=== PATIENT | male | born 1955 | race Caucasian/White ===

== ENCOUNTER 2022-09-10 14:46 | Outpatient (REF) | payer MEDICARE, MEDICAID, SELFPAY ==
--- NOTE | ~2022-09-10 | XR_ITS ---
EXAMINATION: XR THORACIC SPINE CLINICAL INFORMATION: Thoracic spine pain. COMPARISON: None TECHNIQUE: Frontal, lateral and swimmer's views of the thoracic spine were obtained. FINDINGS: There is bony demineralization. Vertebral body heights and alignment are normal. There is disc space narrowing at C3-C4, C4-C5, C6-C7 and T5-T6. The remaining disc spaces are relatively well-maintained. No acute fracture or spondylolisthesis is seen. There is multi-level mild cervicothoracic spondylosis. The posterior elements are intact. The paravertebral soft tissues are unremarkable. Median sternotomy wires and a cardiac valvuloplasty are noted. There is orthopedic hardware applied to numerous ribs. XR/XR lumbar spine 2-3V IMPRESSION: There is multi-level cervical thoracic degenerative disc disease and spondylosis, as detailed above. No acute fracture or spondylolisthesis is seen. EXAMINATION: XR LUMBOSACRAL SPINE CLINICAL INFORMATION: Degenerative disc disease. COMPARISON: None TECHNIQUE: AP and lateral views of the lumbar spine and lateral view of the lumbosacral junction. FINDINGS: There is bony demineralization. There is a moderate thoracolumbar dextroscoliosis. There is a moderate L5 upper endplate compression fracture. There is rightward disc space narrowing at L4-L5. The remaining lumbar disc spaces are well-maintained. The posterior elements are intact. This multi-level lumbar spondylosis and facet arthropathy. The paravertebral soft tissues are unremarkable. Orthopedic hardware seen applied to the pelvis. IMPRESSION: 1. There is a moderate thoracolumbar dextroscoliosis. 2. There is a moderate L5 compression fracture. 3. There is multi-level lumbar spondylosis and facet arthropathy. 4. There is degenerative disc disease at L4-L5.
--- NOTE | ~2022-09-10 | XR_ITS ---
EXAMINATION: XR THORACIC SPINE CLINICAL INFORMATION: Thoracic spine pain. COMPARISON: None TECHNIQUE: Frontal, lateral and swimmer's views of the thoracic spine were obtained. FINDINGS: There is bony demineralization. Vertebral body heights and alignment are normal. There is disc space narrowing at C3-C4, C4-C5, C6-C7 and T5-T6. The remaining disc spaces are relatively well-maintained. No acute fracture or spondylolisthesis is seen. There is multi-level mild cervicothoracic spondylosis. The posterior elements are intact. The paravertebral soft tissues are unremarkable. Median sternotomy wires and a cardiac valvuloplasty are noted. There is orthopedic hardware applied to numerous ribs. XR/XR thoracic spine 3V IMPRESSION: There is multi-level cervical thoracic degenerative disc disease and spondylosis, as detailed above. No acute fracture or spondylolisthesis is seen. EXAMINATION: XR LUMBOSACRAL SPINE CLINICAL INFORMATION: Degenerative disc disease. COMPARISON: None TECHNIQUE: AP and lateral views of the lumbar spine and lateral view of the lumbosacral junction. FINDINGS: There is bony demineralization. There is a moderate thoracolumbar dextroscoliosis. There is a moderate L5 upper endplate compression fracture. There is rightward disc space narrowing at L4-L5. The remaining lumbar disc spaces are well-maintained. The posterior elements are intact. This multi-level lumbar spondylosis and facet arthropathy. The paravertebral soft tissues are unremarkable. Orthopedic hardware seen applied to the pelvis. IMPRESSION: 1. There is a moderate thoracolumbar dextroscoliosis. 2. There is a moderate L5 compression fracture. 3. There is multi-level lumbar spondylosis and facet arthropathy. 4. There is degenerative disc disease at L4-L5.
== END 2022-09-10 14:47 | disposition home or self-care (01) ==
LOC: HO.XRAY 14:46
PROVIDERS: PCP Physician Assistant Medical; Visit Provider Nurse Practitioner Family
DX: M47.816 Spondylosis without myelopathy or radiculopathy, lumbar region (principal); M54.6 Pain in thoracic spine; G89.29 Other chronic pain
CPT/HCPCS: 72072; 72100; 99202

== ENCOUNTER → 2022-10-19 10:59 | Outpatient (REF) | payer MEDICARE, MEDICAID, SELFPAY ==
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
== END ==
LOC: HO.NUCMED 10:59
PROVIDERS: Visit Provider Nurse Practitioner Family
DX: M47.816 Spondylosis without myelopathy or radiculopathy, lumbar region (principal)
CPT/HCPCS: 78306; A9503

== ENCOUNTER → 2022-10-25 15:30 | Outpatient (BNVA) | payer MEDICARE, MEDICAID, SELFPAY | PROVIDERS: PCP Physician Assistant Medical; Visit Provider Nurse Practitioner Family | DX: S32.050A Wedge compression fracture of fifth lumbar vertebra, initial encounter for closed fracture (principal); G89.4 Chronic pain syndrome; M51.36 Other intervertebral disc degeneration, lumbar region; M47.816 Spondylosis without myelopathy or radiculopathy, lumbar region; G89.29 Other chronic pain; M54.6 Pain in thoracic spine | CPT/HCPCS: Q3014 ==

== ENCOUNTER 2022-11-26 14:08 | Outpatient (REF) | payer MEDICARE, MEDICAID, SELFPAY ==
--- NOTE | ~2022-11-26 | XR_ITS ---
EXAMINATION: PRE-MRI ORBITS CLINICAL INFORMATION: History of foreign body in orbits. COMPARISON: None TECHNIQUE: 3 views. FINDINGS: There is no visible radiopaque foreign body seen in the orbits. The bony orbits are symmetrical and normal. There is normal aeration of bilateral paranasal sinuses and mastoid air sinuses. XR/XR pre mri screening IMPRESSION: No visible radiopaque foreign body seen in the orbits.
--- NOTE | ~2022-11-26 | MR_ITS ---
EXAMINATION: MR LUMBAR SPINE WITHOUT CONTRAST CLINICAL INFORMATION: Wedge compression fracture of the fifth lumbar vertebra. COMPARISON: None TECHNIQUE: MRI of the lumbar spine was obtained using routine sequences without contrast. FINDINGS: The lumbar alignment appears maintained. There is mild to moderate disc height loss at L4-L5 with mild associated endplate remodeling and mild depression of the superior aspect of L5. There is no bone marrow edema at this level. A minimal amount of edematous endplate changes seen at L3-L4. The distal spinal cord appears normal. The conus medullaris terminates normally at the L2 level. The extraspinal soft tissues are within normal limits. SPINAL LEVELS: L1-L2: No posterior disc abnormality. No spinal canal or neural foraminal stenosis. L2-L3: No posterior disc abnormality. Mild facet arthropathy. No spinal canal or neural foraminal stenosis. L3-L4: Mild disc bulging with mild facet arthropathy. Mild narrowing of the bilateral neural foramina. No spinal canal stenosis. L4-L5: Disc bulging with ligamentum flavum infolding and mild to moderate facet arthropathy. Disc bulging with osteophytic ridging results in mild left and moderate right neural foraminal stenosis with abutment of the exiting right L4 nerve root. L5-S1: Mild disc bulging with moderate facet arthropathy. Mild to moderate right and mild left neural foraminal stenosis. No spinal canal stenosis. MR/MR lumbar spine wo con IMPRESSION: Mild multilevel degenerative spondylosis. No significant narrowing of the spinal canal. At L4-L5 there is moderate right-sided neural foraminal stenosis with abutment of the exiting right L4 nerve root. At L5-S1 there is mild to moderate right and mild left neural foraminal stenosis.
== END 2022-11-26 14:09 | disposition home or self-care (01) ==
LOC: HO.MRI 14:08
PROVIDERS: PCP Physician Assistant Medical; Visit Provider Nurse Practitioner Family
DX: M47.816 Spondylosis without myelopathy or radiculopathy, lumbar region (principal); M51.36 Other intervertebral disc degeneration, lumbar region; S32.050D Wedge compression fracture of fifth lumbar vertebra, subsequent encounter for fracture with routine healing
CPT/HCPCS: 72148

== ENCOUNTER 2022-11-30 06:36 | Outpatient (REF) | payer MEDICARE, MEDICAID, SELFPAY | END 2022-11-30 06:37 | disposition home or self-care (01) | LOC: CF 06:36 | PROVIDERS: Visit Provider Anesthesiology | DX: Z13.89 Encounter for screening for other disorder (principal) ==

== ENCOUNTER 2022-12-14 06:08 | Outpatient (REF) | payer MEDICARE, MEDICAID, SELFPAY ==
--- NOTE | ~2022-12-14 | FL_ITS ---
EXAMINATION: XR FLUOROSCOPY WITH IMAGES CLINICAL INFORMATION: Spondylosis without myelopathy or radiculopathy COMPARISON: None. TECHNIQUE: Fluoroscopy Supervised By: Merary. Fluoroscopy Time: 0.9 minutes. Cumulative Dose: 16.0 mGy. DAP: 4.37 Gycm2. Images: 8. FINDINGS: There is a digital images revealing bilateral needles positioned adjacent to L5, L4 and L3 and L2 pedicles with contrast opacifying the soft tissues. Visualized bones are grossly unremarkable. FL/FL guidance in treatment room IMPRESSION: Fluoroscopy guidance was provided to referrer for pain management.
== END 2022-12-14 06:09 | disposition home or self-care (01) ==
LOC: CF 06:08
PROVIDERS: Visit Provider Anesthesiology
DX: M47.816 Spondylosis without myelopathy or radiculopathy, lumbar region (principal); S32.050A Wedge compression fracture of fifth lumbar vertebra, initial encounter for closed fracture; G89.4 Chronic pain syndrome; M51.36 Other intervertebral disc degeneration, lumbar region; X58.XXXA Exposure to other specified factors, initial encounter; Y93.9 Activity, unspecified; Y92.9 Unspecified place or not applicable; Y99.9 Unspecified external cause status
CPT/HCPCS: 64493; 64494

== ENCOUNTER → 2022-12-16 08:56 | Outpatient (BNVA) | payer MEDICARE, MEDICAID, SELFPAY | PROVIDERS: PCP Physician Assistant Medical; Visit Provider Nurse Practitioner Family | DX: S32.050A Wedge compression fracture of fifth lumbar vertebra, initial encounter for closed fracture (principal); M51.36 Other intervertebral disc degeneration, lumbar region; M47.816 Spondylosis without myelopathy or radiculopathy, lumbar region; G89.29 Other chronic pain | CPT/HCPCS: Q3014 ==

== ENCOUNTER 2023-01-05 06:07 | Outpatient (REF) | payer MEDICARE, MEDICAID, SELFPAY ==
--- NOTE | ~2023-01-05 | FL_ITS ---
EXAMINATION: XR FLUOROSCOPY WITH IMAGES CLINICAL INFORMATION: Thoracic spine pain. COMPARISON: 09/10/2022. TECHNIQUE: Fluoroscopy Supervised By: Dr. Mati Finch. Fluoroscopy Time: 0.4 minutes. Cumulative Dose: 13.4 mGy. DAP: 1.19 Gycm2. Images: 4. FINDINGS: [place] are placed from a posterior approach overlying the lateral aspects pedicles at 3 levels of the thoracic spine. FL/FL guidance in treatment room IMPRESSION: Intraoperative fluoroscopy for pain management procedure.
== END 2023-01-05 06:08 | disposition home or self-care (01) ==
LOC: CF 06:07
PROVIDERS: Visit Provider Internal Medicine
DX: M47.814 Spondylosis without myelopathy or radiculopathy, thoracic region (principal); G89.29 Other chronic pain; M54.6 Pain in thoracic spine
CPT/HCPCS: 64490; 64491

== ENCOUNTER → 2023-01-07 08:49 | Outpatient (BNVA) | payer MEDICARE, MEDICAID, SELFPAY | PROVIDERS: PCP Physician Assistant Medical; Visit Provider Nurse Practitioner Family | DX: G89.4 Chronic pain syndrome (principal); M51.36 Other intervertebral disc degeneration, lumbar region; M47.816 Spondylosis without myelopathy or radiculopathy, lumbar region; G89.29 Other chronic pain; M54.6 Pain in thoracic spine; M47.814 Spondylosis without myelopathy or radiculopathy, thoracic region; F19.10 Other psychoactive substance abuse, uncomplicated | CPT/HCPCS: Q3014 ==

== ENCOUNTER → 2023-01-12 13:38 | Outpatient (BNVA) | payer MEDICARE, MEDICAID, SELFPAY | PROVIDERS: PCP Physician Assistant Medical; Visit Provider Nurse Practitioner Psychiatric/Mental Health | DX: Z51.81 Encounter for therapeutic drug level monitoring (principal); F11.20 Opioid dependence, uncomplicated | CPT/HCPCS: 80305; 99212 ==

== ENCOUNTER → 2023-01-18 13:58 | Outpatient (BNVA) | payer MEDICARE, MEDICAID, SELFPAY | PROVIDERS: PCP Physician Assistant Medical; Visit Provider Nurse Practitioner Psychiatric/Mental Health | DX: Z51.81 Encounter for therapeutic drug level monitoring (principal); F11.20 Opioid dependence, uncomplicated | CPT/HCPCS: 80305; 99212 ==

== ENCOUNTER → 2023-02-01 14:29 | Outpatient (BNVA) | payer MEDICARE, MEDICAID, SELFPAY | PROVIDERS: PCP Physician Assistant Medical; Visit Provider Nurse Practitioner Psychiatric/Mental Health | DX: F11.20 Opioid dependence, uncomplicated (principal); B19.20 Unspecified viral hepatitis C without hepatic coma; F33.41 Major depressive disorder, recurrent, in partial remission; Z79.899 Other long term (current) drug therapy; Z51.81 Encounter for therapeutic drug level monitoring | CPT/HCPCS: 80305; 99212 ==

== ENCOUNTER → 2023-02-08 14:11 | Outpatient (BNVA) | payer MEDICARE, MEDICAID, SELFPAY | PROVIDERS: PCP Physician Assistant Medical ==

== ENCOUNTER 2023-02-16 05:59 | Outpatient (REF) | payer MEDICARE, MEDICAID, SELFPAY ==
--- NOTE | ~2023-02-16 | FL_ITS ---
EXAMINATION: XR FLUOROSCOPY WITH IMAGES CLINICAL INFORMATION: Spondylosis without myelopathy or radiculopathy COMPARISON: None available. TECHNIQUE: Fluoroscopy Supervised By: Dr. Mati Finch. Fluoroscopy Time: 0.3 minutes. Cumulative Dose: 17 mGy. DAP: 3.5 Gycm2. Images: 2. FINDINGS: Images demonstrate needle placement and contrast injection adjacent to the right side of 3 lower thoracic vertebral bodies. FL/FL guidance in treatment room IMPRESSION: Fluoroscopy guidance for pain management procedure.
== END 2023-02-16 06:00 | disposition home or self-care (01) ==
LOC: CF 05:59
PROVIDERS: Visit Provider Internal Medicine
DX: M47.814 Spondylosis without myelopathy or radiculopathy, thoracic region (principal); G89.29 Other chronic pain; M54.6 Pain in thoracic spine; F11.20 Opioid dependence, uncomplicated; Z79.899 Other long term (current) drug therapy
CPT/HCPCS: 64490; 64491; 80305; 99212; J1100

== ENCOUNTER → 2023-03-02 14:51 | Outpatient (BNVA) | payer MEDICARE, MEDICAID, SELFPAY | PROVIDERS: PCP Physician Assistant Medical; Visit Provider Nurse Practitioner Psychiatric/Mental Health | DX: F11.20 Opioid dependence, uncomplicated (principal); F19.10 Other psychoactive substance abuse, uncomplicated; M54.9 Dorsalgia, unspecified; G89.29 Other chronic pain; Z51.81 Encounter for therapeutic drug level monitoring; Z79.899 Other long term (current) drug therapy | CPT/HCPCS: 80305; 99212 ==

== ENCOUNTER → 2023-03-29 15:03 | Outpatient (BNVA) | payer MEDICARE, MEDICAID, SELFPAY | PROVIDERS: PCP Physician Assistant Medical; Visit Provider Nurse Practitioner Psychiatric/Mental Health | DX: Z51.81 Encounter for therapeutic drug level monitoring (principal); F11.20 Opioid dependence, uncomplicated | CPT/HCPCS: 99212 ==

== ENCOUNTER → 2023-03-31 14:35 | Outpatient (BNVA) | payer MEDICARE, MEDICAID, SELFPAY | PROVIDERS: PCP Physician Assistant Medical; Visit Provider Nurse Practitioner Family | DX: G89.4 Chronic pain syndrome (principal); M51.36 Other intervertebral disc degeneration, lumbar region; M47.816 Spondylosis without myelopathy or radiculopathy, lumbar region; M54.6 Pain in thoracic spine; M47.814 Spondylosis without myelopathy or radiculopathy, thoracic region; S32.050A Wedge compression fracture of fifth lumbar vertebra, initial encounter for closed fracture | CPT/HCPCS: Q3014 ==

== ENCOUNTER → 2023-04-27 14:22 | Outpatient (BNVA) | payer OTHER, MEDICAID, SELFPAY | PROVIDERS: PCP Physician Assistant Medical; Visit Provider Nurse Practitioner Psychiatric/Mental Health | DX: F11.20 Opioid dependence, uncomplicated (principal); Z91.81 History of falling; Z51.81 Encounter for therapeutic drug level monitoring; Z79.899 Other long term (current) drug therapy | CPT/HCPCS: 99212 ==

== ENCOUNTER 2023-05-30 15:08 | Outpatient (AMB) | payer OTHER, MEDICAID, SELFPAY ==
--- NOTE | 2023-05-30 15:14 | A.OFFVIS_ITS ---
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: No Allergies No Known Allergies Allergy (Verified 05/30/23 15:22) Do you need a note to return to daycare/school/sports/work: No HPI mat visit HPI Details Patient presents for followup Reporting he has been sick over the last month Doing well with current suboxone dose No questions or concerns at this time [facility] Medical History Acute insomnia Aortic stenosis Ascending aortic aneurysm Back pain Benign prostatic hyperplasia with lower urinary tract symptoms Chronic pain syndrome Depression Duodenitis Heart murmur Hepatitis-C Hip pain History of rib fracture Hyperlipidemia Hypertension Knee pain Major depressive disorder, recurrent, in partial remission Polysubstance abuse Surgical History H/O aortic root repair H/O mechanical aortic valve replacement H/O total knee replacement History of lung surgery Social History Alcohol intake: current Patient Tobacco Use Status: Never used Tobacco Substance Use Type: Heroin and Other Review of Systems Const Reports as per HPI and Reports no additional complaints Physical Exam Vital Signs: Last Vital Signs Pulse 72 05/30/23 15:21 BP 122/78 05/30/23 15:21 Pulse Ox 97 05/30/23 15:21 Oxygen Delivery Method Room Air 05/30/23 15:21 Const General: cooperative, alert and awake Nutritional Appearance: average body habitus Orientation/consciousness: patient oriented x3 Limitations: physical limitations (slow ambulation) Neuro General: patient oriented x3 Psych Appearance: grossly normal Mental Status: mental status grossly normal Speech and movement: Clear speech present Affect: normal affect Attitude: cooperative Thought process: Normal thought process present Thought content: Normal thought content present Insight: Good insight present (Psych) Judgement: Good judgement present (Psych) Assessment & Plan Assessment & Plan (1) Opioid use disorder, moderate, dependence: Code(s): F11.20 - Opioid dependence, uncomplicated Plan: * no refill needed at this time, recently filled rx * follow up 3 weeks Coding Level of Care Code Est Pt Level 3 (17448) Diagnoses Opioid use disorder, moderate, dependence F11.20
[2023-05-30 15:21] VITALS: BP 122/78; PULSE 72; O2SAT 97
== END 2023-05-30 15:42 | disposition home or self-care (01) ==
LOC: HO.HCC 15:08
PROVIDERS: PCP Physician Assistant Medical; Visit Provider Nurse Practitioner Psychiatric/Mental Health
DX: F11.20 Opioid dependence, uncomplicated (principal)
CPT/HCPCS: 99213

== ENCOUNTER → 2023-05-30 15:08 | Outpatient (BNVA) | payer OTHER, MEDICAID, SELFPAY | PROVIDERS: PCP Physician Assistant Medical; Visit Provider Nurse Practitioner Psychiatric/Mental Health | DX: F11.20 Opioid dependence, uncomplicated (principal); Z51.81 Encounter for therapeutic drug level monitoring; Z79.899 Other long term (current) drug therapy | CPT/HCPCS: 99213 ==

== ENCOUNTER 2023-06-20 14:41 | Outpatient (AMB) | payer OTHER, MEDICAID, SELFPAY ==
[2023-06-20 14:50] VITALS: BP 128/70; PULSE 69; O2SAT 95
--- NOTE | 2023-06-20 14:50 | A.OFFVIS_ITS ---
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 Required: No Allergies No Known Allergies Allergy (Verified 06/20/23 14:51) Do you need a note to return to daycare/school/sports/work: No HPI mat visit HPI Details Pt presents for OUD treatment follow up Currently being prescribed Suboxone 2mg QID Denies any side effects related to medication No questions or concerns at this time [facility] Medical History Acute insomnia Aortic stenosis Ascending aortic aneurysm Back pain Benign prostatic hyperplasia with lower urinary tract symptoms Chronic pain syndrome Depression Duodenitis Heart murmur Hepatitis-C Hip pain History of rib fracture Hyperlipidemia Hypertension Knee pain Major depressive disorder, recurrent, in partial remission Polysubstance abuse Surgical History H/O aortic root repair H/O mechanical aortic valve replacement H/O total knee replacement History of lung surgery Social History Alcohol intake: current Patient Tobacco Use Status: Never used Tobacco Substance Use Type: Heroin and Other Review of Systems Const Reports as per HPI and Reports no additional complaints Physical Exam Vital Signs: Last Vital Signs Pulse 69 06/20/23 14:50 BP 128/70 06/20/23 14:50 Pulse Ox 95 06/20/23 14:50 Oxygen Delivery Method Room Air 06/20/23 14:50 Const General: cooperative, alert and awake Nutritional Appearance: average body habitus Orientation/consciousness: patient oriented x3 Limitations: physical limitations (slow ambulation) Neuro General: patient oriented x3 Psych Appearance: grossly normal Mental Status: mental status grossly normal Speech and movement: Clear speech present Affect: normal affect Attitude: cooperative Thought process: Normal thought process present Thought content: Normal thought content present Insight: Good insight present (Psych) Judgement: Good judgement present (Psych) Assessment & Plan Assessment & Plan (1) Opioid use disorder, moderate, dependence: Code(s): F11.20 - Opioid dependence, uncomplicated Plan: * continue suboxone at current dose * follow up 4 weeks Coding Level of Care Code Est Pt Level 3 (04891) Diagnoses Opioid use disorder, moderate, dependence F11.20
== END 2023-06-20 15:08 | disposition home or self-care (01) ==
LOC: HO.HCC 14:41
PROVIDERS: PCP Physician Assistant Medical; Visit Provider Nurse Practitioner Psychiatric/Mental Health
DX: F11.20 Opioid dependence, uncomplicated (principal)
CPT/HCPCS: 99213

== ENCOUNTER → 2023-06-20 14:41 | Outpatient (BNVA) | payer OTHER, MEDICAID, SELFPAY | PROVIDERS: PCP Physician Assistant Medical; Visit Provider Nurse Practitioner Psychiatric/Mental Health | DX: F11.20 Opioid dependence, uncomplicated (principal) | CPT/HCPCS: 99212 ==

== ENCOUNTER 2023-07-19 15:45 | Outpatient (AMB) | payer OTHER, MEDICAID, SELFPAY ==
--- NOTE | 2023-07-19 15:46 | MHC.OFFVIS ---
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 Denies any side effects related to medication No questions or concerns at this time [facility] Medical History Acute insomnia Aortic stenosis Ascending aortic aneurysm Back pain Benign prostatic hyperplasia with lower urinary tract symptoms Chronic pain syndrome Depression Duodenitis Heart murmur Hepatitis-C Hip pain History of rib fracture Hyperlipidemia Hypertension Knee pain Major depressive disorder, recurrent, in partial remission Polysubstance abuse Surgical History H/O aortic root repair H/O mechanical aortic valve replacement H/O total knee replacement History of lung surgery Social History Alcohol intake: current Patient Tobacco Use Status: Never used Tobacco Substance Use Type: Heroin and Other Review of Systems Const Reports as per HPI Physical Exam Vital Signs: Last Vital Signs Pulse 78 07/19/23 15:57 BP 128/80 07/19/23 15:57 Pulse Ox 96 07/19/23 15:57 Oxygen Delivery Method Room Air 07/19/23 15:57 Const General: cooperative, alert and awake Nutritional Appearance: average body habitus Orientation/consciousness: patient oriented x3 Limitations: physical limitations (slow ambulation) Neuro General: patient oriented x3 Psych Appearance: grossly normal Mental Status: mental status grossly normal Speech and movement: Clear speech present Affect: normal affect Attitude: cooperative Thought process: Normal thought process present Thought content: Normal thought content present Insight: Good insight present (Psych) Judgement: Good judgement present (Psych) Assessment & Plan Assessment & Plan (1) Opioid use disorder, moderate, dependence: Code(s): F11.20 - Opioid dependence, uncomplicated Plan: continue suboxone at current dose follow up 4 weeks Medications: Refilled buprenorphine-naloxone 2-0.5 mg (Suboxone) 1 film sublingual QID 120 ea 0RF Coding Level of Care Code Est Pt Level 3 (45198) Diagnoses Opioid use disorder, moderate, dependence F11.20
[2023-07-19 15:57] VITALS: BP 128/80; PULSE 78; O2SAT 96
== END 2023-07-19 16:39 | disposition home or self-care (01) ==
PROVIDERS: PCP Physician Assistant Medical; Visit Provider Nurse Practitioner Psychiatric/Mental Health
DX: F11.20 Opioid dependence, uncomplicated (principal)
CPT/HCPCS: 99213

== ENCOUNTER → 2023-07-19 15:45 | Outpatient (BNVA) | payer OTHER, MEDICAID, SELFPAY | PROVIDERS: PCP Physician Assistant Medical; Visit Provider Nurse Practitioner Psychiatric/Mental Health | DX: F11.20 Opioid dependence, uncomplicated (principal) | CPT/HCPCS: 99212 ==

== ENCOUNTER 2023-08-15 14:41 | Outpatient (AMB) | payer OTHER, MEDICAID, SELFPAY ==
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
[2023-08-15 14:48] VITALS: BP 124/78; PULSE 78; O2SAT 99
== END 2023-08-15 15:24 | disposition home or self-care (01) ==
LOC: HO.HCC 14:41
PROVIDERS: PCP Physician Assistant Medical; Visit Provider Nurse Practitioner Psychiatric/Mental Health
DX: F11.20 Opioid dependence, uncomplicated (principal)
CPT/HCPCS: 99213

== ENCOUNTER → 2023-08-15 14:41 | Outpatient (BNVA) | payer OTHER, MEDICAID, SELFPAY | PROVIDERS: PCP Physician Assistant Medical; Visit Provider Nurse Practitioner Psychiatric/Mental Health | DX: F11.20 Opioid dependence, uncomplicated (principal) | CPT/HCPCS: 99212 ==

== ENCOUNTER 2023-08-17 06:01 | Outpatient (REF) | payer OTHER, MEDICAID, SELFPAY | END 2023-08-17 06:02 | disposition home or self-care (01) | LOC: CF 06:01 | PROVIDERS: Visit Provider Internal Medicine | DX: M47.814 Spondylosis without myelopathy or radiculopathy, thoracic region (principal) | CPT/HCPCS: 64490; 64491; J1100 ==

== ENCOUNTER 2023-08-17 09:43 | Outpatient (AMB) | payer OTHER, MEDICAID, SELFPAY ==
[2023-08-17 09:48] VITALS: BP 130/82; PULSE 70; RESP 14; O2SAT 97
--- NOTE | 2023-08-17 09:48 | A.OFFVIS_ITS ---
Intake Vital Signs 08/17/23 09:48 BP 130/82 Blood Pressure Location Rt brachial Position Sitting Respiration 14 Pulse 70 Pulse Source Pulse Oximeter Pulse Oximetry (%) 97 Oxygen Delivery Method Room Air Intake Visit Reasons: figueroa theraputic T4-T5-T6 MBB Allergies No Known Allergies Allergy (Verified 08/17/23 09:48) HPI figueroa theraputic T4-T5-T6 MBB 2 HPI Details Patient presents for scheduled procedure. Denies any recent cough, cold, infection, fever or other significant changes in medical history since last office visit. [facility] Medical History Acute insomnia Aortic stenosis Ascending aortic aneurysm Back pain Benign prostatic hyperplasia with lower urinary tract symptoms Chronic pain syndrome Depression Duodenitis Heart murmur Hepatitis-C Hip pain History of rib fracture Hyperlipidemia Hypertension Knee pain Major depressive disorder, recurrent, in partial remission Polysubstance abuse Surgical History H/O aortic root repair H/O mechanical aortic valve replacement H/O total knee replacement History of lung surgery Social History Alcohol intake: current Patient Tobacco Use Status: Never used Tobacco Substance Use Type: Heroin and Other Physical Exam Vital Signs: Last Vital Signs Pulse 70 08/17/23 09:48 Resp 14 08/17/23 09:48 BP 130/82 08/17/23 09:48 Pulse Ox 97 08/17/23 09:48 Oxygen Delivery Method Room Air 08/17/23 09:48 Office Procedures Cervical/Thoracic Facet Inj Details: Thoracic Medial Branch Block, Bilateral, T4/T5/T6 medial branches After obtaining written consent, pre-procedure blood pressure and pulse were recorded and are in the nursing record for review. The patient was placed in a prone position. The respective thoracic area was prepped with chloraprep and draped in sterile fashion. The skin over the target medial branch nerves was anesthetized with 0.5% lidocaine. A 25 gauge 1.5 inch needle was inserted into the target medial branch nerve under fluoroscopic guidance. No paresthesias were elicited with needle placement and aspiration was negative for blood and CSF. Bony contact was maintained with the underlying pedicle to ensure appropriate depth of needle placement throughout. Next, 0.2cc of omnipaque 180 was injected to verify positioning. Next 1.66mg of Dexamethasone mixed with 0.5 ml 0.5% ropivicaine was injected (0.5cc total per level). The identical procedure was performed at the remaining levels. The skin was cleansed and a sterile bandage was applied. Following the procedure the patient's vital signs were stable. The patient tolerated the procedure well and no complications were encountered. Following the procedure the patient's vital signs were stable. The patient was discharged home in good condition with post-procedural instructions. Time Out: Immediately prior to the procedure, the following was verbally confirmed that there is a signed consent form and that the correct patient, planned procedure, site and side are consistent with documentation and that necessary equipment and/or blood products are available prior to the start of the case. Complications: none EBL: <5 cc 97111 - second level, with Fluoroscopy (bilateral) Procedure code (CPT) selection complete Results Reviewed Results Reviewed: 08/17/23 09:51 Lidocaine HCl 2 % MPF [Xylocaine 2 % MPF] 5 ml .ROUTE .STK-MED ONE dexAMETHasone sod phosphate/PF [Decadron] 10 mg .ROUTE .STK-MED ONE Assessment & Plan Assessment & Plan (1) Thoracic spondylosis: Code(s): M47.814 - Spondylosis without myelopathy or radiculopathy, thoracic region Plan Patient is status post bilateral midthoracic therapeutic MBBs. Patient tolerated procedure well and was discharged home in stable condition with discharge instructions. All questions were answered. We will follow-up via telephone or in clinic to assess response to therapy. A follow-up appointment was made during today's visit. Orders: Orders FL guidance in treatment room Today M47.814 - Spondylosis without myelopathy or radiculopathy, thoracic region Coding Level of Care Code Procedure Only Diagnoses Thoracic spondylosis M47.814 CPT Codes Facet Injection Cervical/Thoracic - CPT: 07178 - second level, with Fluoroscopy ([id number])
== END 2023-08-17 10:55 | disposition home or self-care (01) ==
LOC: HO.PMCPRC 09:43
PROVIDERS: PCP Physician Assistant Medical; Visit Provider Internal Medicine
DX: M47.814 Spondylosis without myelopathy or radiculopathy, thoracic region (principal)
CPT/HCPCS: 64490; 64491

== ENCOUNTER 2023-09-15 09:26 | Outpatient (AMB) | payer OTHER, MEDICAID, SELFPAY ==
[2023-09-15 09:27] VITALS: BMI 32.1
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
== END 2023-09-15 09:33 | disposition home or self-care (01) ==
LOC: HO.PMC 09:26
PROVIDERS: PCP Physician Assistant Medical; Visit Provider Nurse Practitioner Family
DX: M47.814 Spondylosis without myelopathy or radiculopathy, thoracic region (principal); G89.4 Chronic pain syndrome; M51.36 Other intervertebral disc degeneration, lumbar region; M47.816 Spondylosis without myelopathy or radiculopathy, lumbar region
CPT/HCPCS: 99213

== ENCOUNTER → 2023-09-15 09:26 | Outpatient (BNVA) | payer OTHER, MEDICAID, SELFPAY | PROVIDERS: PCP Physician Assistant Medical; Visit Provider Nurse Practitioner Family ==

== ENCOUNTER 2023-10-10 14:57 | Outpatient (AMB) | payer OTHER, MEDICAID, SELFPAY ==
--- NOTE | 2023-10-10 15:08 | A.OFFVIS_ITS ---
Intake Vital Signs 10/10/23 15:16 BP 124/76 Blood Pressure Location Lt radial Position Sitting Pulse 78 Pulse Source Pulse Oximeter Pulse Oximetry (%) 96 Oxygen Delivery Method Room Air Intake Visit Reasons: mat visit Allergies No Known Allergies Allergy (Verified 10/10/23 15:19) [facility] Medical History Chronic pain syndrome History of rib fracture Hip pain Knee pain Depression Back pain Heart murmur Aortic stenosis Hepatitis-C Polysubstance abuse Hyperlipidemia Hypertension Acute insomnia Ascending aortic aneurysm Duodenitis Major depressive disorder, recurrent, in partial remission Benign prostatic hyperplasia with lower urinary tract symptoms Surgical History H/O total knee replacement History of lung surgery H/O mechanical aortic valve replacement H/O aortic root repair Social History Alcohol intake: current Patient Tobacco Use Status: Never used Tobacco Substance Use Type: Heroin and Other Physical Exam Vital Signs: Last Vital Signs Pulse 78 10/10/23 15:16 BP 124/76 10/10/23 15:16 Pulse Ox 96 10/10/23 15:16 Oxygen Delivery Method Room Air 10/10/23 15:16 Coding
[2023-10-10 15:16] VITALS: BP 124/76; PULSE 78; O2SAT 96
--- NOTE | 2023-10-10 15:16 | MHC.OFFVIS ---
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 Denies any concerns about suboxone dose Denies any concerns with recovery at this time [facility] Medical History Chronic pain syndrome History of rib fracture Hip pain Knee pain Depression Back pain Heart murmur Aortic stenosis Hepatitis-C Polysubstance abuse Hyperlipidemia Hypertension Acute insomnia Ascending aortic aneurysm Duodenitis Major depressive disorder, recurrent, in partial remission Benign prostatic hyperplasia with lower urinary tract symptoms Surgical History H/O total knee replacement History of lung surgery H/O mechanical aortic valve replacement H/O aortic root repair Social History Alcohol intake: current Patient Tobacco Use Status: Never used Tobacco Substance Use Type: Heroin and Other Review of Systems Const Reports as per HPI Physical Exam Vital Signs: Last Vital Signs Pulse 78 10/10/23 15:16 BP 124/76 10/10/23 15:16 Pulse Ox 96 10/10/23 15:16 Oxygen Delivery Method Room Air 10/10/23 15:16 Const General: cooperative and no acute distress Resp Effort & Inspection: normal respiratory effort Skin General skin exam: no rashes or lesions noted Psych Appearance: grossly normal Mental Status: mental status grossly normal Thought process: Normal thought process present Thought content: Normal thought content present Insight: Good insight present (Psych) Assessment & Plan Assessment & Plan (1) Opioid use disorder, moderate, dependence: Code(s): F11.20 - Opioid dependence, uncomplicated Plan: continue suboxone at current dose follow up 8 weeks Coding Level of Care Code Est Pt Level 3 (52459) Diagnoses Opioid use disorder, moderate, dependence F11.20
== END 2023-10-10 16:03 | disposition home or self-care (01) ==
PROVIDERS: PCP Physician Assistant Medical; Visit Provider Nurse Practitioner Psychiatric/Mental Health
DX: F11.20 Opioid dependence, uncomplicated (principal)
CPT/HCPCS: 99213

== ENCOUNTER → 2023-10-10 14:57 | Outpatient (BNVA) | payer OTHER, MEDICAID, SELFPAY | PROVIDERS: PCP Physician Assistant Medical; Visit Provider Nurse Practitioner Psychiatric/Mental Health | DX: F19.20 Other psychoactive substance dependence, uncomplicated (principal); F11.20 Opioid dependence, uncomplicated; G89.4 Chronic pain syndrome; Z51.81 Encounter for therapeutic drug level monitoring; Z79.899 Other long term (current) drug therapy | CPT/HCPCS: 99212 ==

== ENCOUNTER 2023-12-09 13:05 | Outpatient (AMB) | payer OTHER, MEDICAID, SELFPAY ==
[2023-12-09 13:02] VITALS: BP 160/90; PULSE 68; RESP 22; O2SAT 95
--- NOTE | 2023-12-09 13:02 | MHC.AM.SUB ---
Intake Vital Signs 12/09/23 13:02 BP 160/90 H Blood Pressure Location Rt radial Position Sitting Respiration 22 H Pulse 68 Pulse Source Pulse Oximeter Pulse Oximetry (%) 95 Comment Patient did not take his BP meds this morning Intake Visit Reasons: mat visit Allergies No Known Allergies Allergy (Verified 10/10/23 15:19) HPI mat visit HPI Details Pt presents for CARLINE treatment and follow up He reports his dose has become less effective, he is currently taking 2mg qid. He reports he frequently will experience breakthrough low back pain and irritability His friend he was caring for in October, he reports sadness but also relief for his friend He has no concerns for recovery at this time, no concerns for medication side effects PFSH Medical History Chronic pain syndrome History of rib fracture Hip pain Knee pain Depression Back pain Heart murmur Aortic stenosis Hepatitis-C Polysubstance abuse Hyperlipidemia Hypertension Acute insomnia Ascending aortic aneurysm Duodenitis Major depressive disorder, recurrent, in partial remission Benign prostatic hyperplasia with lower urinary tract symptoms Surgical History H/O total knee replacement History of lung surgery H/O mechanical aortic valve replacement H/O aortic root repair Social History Alcohol intake: current Patient Tobacco Use Status: Never used Tobacco Substance Use Type: Heroin and Other Review of Systems Const Reports as per HPI Physical Exam Vital Signs: Last Vital Signs Pulse 68 12/09/23 13:02 Resp 22 H 12/09/23 13:02 BP 160/90 H 12/09/23 13:02 Pulse Ox 95 12/09/23 13:02 Const General: cooperative and no acute distress Resp Effort & Inspection: normal respiratory effort Psych Appearance: disheveled Mental Status: mental status grossly normal Speech and movement: Normal speech and movement present Affect: normal affect Attitude: cooperative Assessment & Plan Assessment & Plan (1) Opioid use disorder, moderate, dependence: Code(s): F11.20 - Opioid dependence, uncomplicated Plan: -Discussed with him changing his dosing to 4mg tid to address some of the breakthrough symptoms -Encouraged him to call [facility] with any questions or concerns -Follow up 8 weeks Medications: New buprenorphine-naloxone 4-[address] 1 strip/tab under (each) side of tongue 1 film buccal TID 84 ea 1RF Discontinued buprenorphine-naloxone 2-0.5 mg (Suboxone) Discontinued Reason: Doctor's Order 1 film sublingual QID 44 ea 0RF Coding Level of Care Code Est Pt Level 3 (92359) Diagnoses Opioid use disorder, moderate, dependence F11.20
== END 2023-12-09 13:40 | disposition home or self-care (01) ==
PROVIDERS: PCP Physician Assistant Medical; Visit Provider Nurse Practitioner Family
DX: F11.20 Opioid dependence, uncomplicated (principal)
CPT/HCPCS: 99214

== ENCOUNTER → 2023-12-09 13:05 | Outpatient (BNVA) | payer OTHER, MEDICAID, SELFPAY | PROVIDERS: PCP Physician Assistant Medical; Visit Provider Nurse Practitioner Family | DX: F11.20 Opioid dependence, uncomplicated (principal) | CPT/HCPCS: 99212 ==

== ENCOUNTER 2024-02-03 12:56 | Outpatient (AMB) | payer OTHER, MEDICAID, SELFPAY ==
--- NOTE | 2024-02-03 12:57 | A.OFFVISCC_ITS ---
Intake Vital Signs 02/03/24 13:01 BP 102/60 Blood Pressure Location Lt radial Position Sitting Pulse 80 Pulse Source Pulse Oximeter Pulse Oximetry (%) 96 Oxygen Delivery Method Room Air Intake Visit Reasons: mat visit Intake Note: the patient presents for a mat visit Drug Purchaser Required: No Allergies No Known Allergies Allergy (Verified 02/03/24 13:02) Do you need a note to return to daycare/school/sports/work: No HPI mat visit HPI Details Patient presents for MAT appointment Reports he has been experiencing discomfort (back and leg pain) Has no other concerns Has regular labwork done with his PCP (Una) [facility] Medical History Chronic pain syndrome History of rib fracture Hip pain Knee pain Depression Back pain Heart murmur Aortic stenosis Hepatitis-C Polysubstance abuse Hyperlipidemia Hypertension Acute insomnia Ascending aortic aneurysm Duodenitis Major depressive disorder, recurrent, in partial remission Benign prostatic hyperplasia with lower urinary tract symptoms Surgical History H/O total knee replacement History of lung surgery H/O mechanical aortic valve replacement H/O aortic root repair Social History Alcohol intake: current Patient Tobacco Use Status: Never used Tobacco Substance Use Type: Heroin and Other Review of Systems Const Reports as per HPI Physical Exam Vital Signs: Last Vital Signs Pulse 80 02/03/24 13:01 BP 102/60 02/03/24 13:01 Pulse Ox 96 02/03/24 13:01 Oxygen Delivery Method Room Air 02/03/24 13:01 Const General: cooperative Resp Effort & Inspection: normal respiratory effort Psych Appearance: grossly normal Mental Status: mental status grossly normal Speech and movement: Normal speech and movement present Affect: normal affect Attitude: cooperative Assessment & Plan Assessment & Plan (1) Opioid use disorder, moderate, dependence: Code(s): F11.20 - Opioid dependence, uncomplicated Plan: -Increased suboxone from 4mg tid to 4mg qid, educated him on potential for constipation. Encouraged him to drink more fluids and use stool softener 1-2 times daily if he experiences constipation -Mass pat reviewed -JAGDISH to obtain labwork -Follow up 8 weeks Medications: Changed From buprenorphine-naloxone 4-[address] 1 strip/tab under (each) side of tongue 1 film buccal TID 84 ea 1RF To buprenorphine-naloxone 4-[address] 1 strip/tab under (each) side of tongue 1 film buccal QID 120 ea 1RF Coding Level of Care Code Est Pt Level 3 (43290) Diagnoses Opioid use disorder, moderate, dependence F11.20
[2024-02-03 13:01] VITALS: BP 102/60; PULSE 80; O2SAT 96
== END 2024-02-03 13:37 | disposition home or self-care (01) ==
PROVIDERS: PCP Physician Assistant Medical; Visit Provider Nurse Practitioner Family
DX: F11.20 Opioid dependence, uncomplicated (principal)
CPT/HCPCS: 99213

== ENCOUNTER → 2024-02-03 12:56 | Outpatient (BNVA) | payer OTHER, MEDICAID, SELFPAY | PROVIDERS: PCP Physician Assistant Medical; Visit Provider Nurse Practitioner Family | DX: F11.20 Opioid dependence, uncomplicated (principal) | CPT/HCPCS: 99212 ==

== ENCOUNTER 2024-03-19 12:51 | Outpatient (AMB) | payer OTHER, MEDICAID, SELFPAY ==
[2024-03-19 12:53] VITALS: BP 140/80; PULSE 74; O2SAT 96
--- NOTE | 2024-03-19 12:53 | A.OFFVISCC_ITS ---
Vital Signs 03/19/24 12:53 BP 140/80 H Blood Pressure Location Lt brachial Position Sitting Pulse 74 Pulse Source Pulse Oximeter Pulse Oximetry (%) 96 Oxygen Delivery Method Room Air Intake Visit Reasons: mat visit Allergies No Known Allergies Allergy (Verified 03/19/24 12:53) HPI HPI mat visit: Details: Patient presents for MAT appt Has been doing a lot of work around where he lives His old roommate was a hoarder, he reports there is still a lot to get rid of Has no concerns for recovery today No breakthrough withdrawal symptoms, pain has been in good control [facility] Medical History Chronic pain syndrome History of rib fracture Hip pain Knee pain Depression Back pain Heart murmur Aortic stenosis Hepatitis-C Polysubstance abuse Hyperlipidemia Hypertension Acute insomnia Ascending aortic aneurysm Duodenitis Major depressive disorder, recurrent, in partial remission Benign prostatic hyperplasia with lower urinary tract symptoms Surgical History H/O total knee replacement History of lung surgery H/O mechanical aortic valve replacement H/O aortic root repair Social History Alcohol intake: current Patient Tobacco Use Status: Never used Tobacco Substance Use Type: Heroin and Other Review of Systems Const Reports as per HPI Physical Exam Vital Signs: Last Vital Signs Pulse 74 03/19/24 12:53 BP 140/80 H 03/19/24 12:53 Pulse Ox 96 03/19/24 12:53 Oxygen Delivery Method Room Air 03/19/24 12:53 Const General: cooperative and no acute distress Resp Effort & Inspection: normal respiratory effort and able to speak in complete sentences Psych Appearance: grossly normal Mental Status: mental status grossly normal Speech and movement: Normal speech and movement present Affect: normal affect Attitude: cooperative Thought process: Normal thought process present Assessment & Plan Assessment & Plan (1) Opioid use disorder, moderate, dependence: Code(s): F11.20 - Opioid dependence, uncomplicated Category: Medical Plan: -Mass pat reviewed -Refill sent, not quite ready to be picked up for another few days, pt aware -Follow up 8 weeks Medications: Refilled buprenorphine-naloxone 4-[address] 1 strip/tab under (each) side of tongue 1 film buccal QID 120 ea 1RF
== END 2024-03-19 13:25 | disposition home or self-care (01) ==
PROVIDERS: PCP Physician Assistant Medical; Visit Provider Nurse Practitioner Family
DX: F11.20 Opioid dependence, uncomplicated (principal)
CPT/HCPCS: 99213

== ENCOUNTER → 2024-03-19 12:51 | Outpatient (BNVA) | payer OTHER, MEDICAID, SELFPAY | PROVIDERS: PCP Physician Assistant Medical; Visit Provider Nurse Practitioner Family | DX: F11.20 Opioid dependence, uncomplicated (principal) | CPT/HCPCS: 99212 ==

== ENCOUNTER 2024-05-14 12:57 | Outpatient (AMB) | payer OTHER, MEDICAID, SELFPAY ==
--- NOTE | 2024-05-14 13:05 | MHC.AM.SUB ---
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 Feels good about this [facility] Medical History Chronic pain syndrome History of rib fracture Hip pain Knee pain Depression Back pain Heart murmur Aortic stenosis Hepatitis-C Polysubstance abuse Hyperlipidemia Hypertension Acute insomnia Ascending aortic aneurysm Duodenitis Major depressive disorder, recurrent, in partial remission Benign prostatic hyperplasia with lower urinary tract symptoms Surgical History H/O total knee replacement History of lung surgery H/O mechanical aortic valve replacement H/O aortic root repair Social History Alcohol intake: current Patient Tobacco Use Status: Never used Tobacco Substance Use Type: Heroin and Other Review of Systems Const Reports as per HPI Physical Exam Const General: cooperative and no acute distress Resp Effort & Inspection: normal respiratory effort and able to speak in complete sentences Psych Appearance: grossly normal Mental Status: mental status grossly normal Speech and movement: Normal speech and movement present Affect: normal affect Attitude: cooperative Thought process: Normal thought process present Assessment & Plan Assessment & Plan (1) Opioid use disorder, moderate, in sustained remission: Code(s): F11.21 - Opioid dependence, in remission Category: Medical Plan: continue suboxone at current dose follow up 2 months via telehealth --can revisit need for increase in dose no refill needed at this time
== END 2024-05-14 13:49 | disposition home or self-care (01) ==
PROVIDERS: PCP Physician Assistant Medical; Visit Provider Nurse Practitioner Psychiatric/Mental Health
DX: F11.21 Opioid dependence, in remission (principal)
CPT/HCPCS: 99213

== ENCOUNTER → 2024-05-14 12:57 | Outpatient (BNVA) | payer OTHER, MEDICAID, SELFPAY | PROVIDERS: PCP Physician Assistant Medical; Visit Provider Nurse Practitioner Psychiatric/Mental Health | DX: F11.21 Opioid dependence, in remission (principal) | CPT/HCPCS: 99212 ==

== ENCOUNTER 2024-07-09 13:05 | Outpatient (AMB) | payer OTHER, MEDICAID, SELFPAY ==
--- NOTE | 2024-07-09 13:05 | A.OFFVISCC_ITS ---
Intake Visit Reasons: MAT tele Allergies No Known Allergies Allergy (Verified 03/19/24 12:53) [facility] MAT tele: Details: Patient presents for follow up via telehealth Since last visit dose was increased to 8mg BID and 4mg in afternoon Finds it helpful No issues with sleep PFSH Medical History Chronic pain syndrome History of rib fracture Hip pain Knee pain Depression Back pain Heart murmur Aortic stenosis Hepatitis-C Polysubstance abuse Hyperlipidemia Hypertension Acute insomnia Ascending aortic aneurysm Duodenitis Major depressive disorder, recurrent, in partial remission Benign prostatic hyperplasia with lower urinary tract symptoms Surgical History H/O total knee replacement History of lung surgery H/O mechanical aortic valve replacement H/O aortic root repair Social History Alcohol intake: current Patient Tobacco Use Status: Never used Tobacco Substance Use Type: Heroin and Other Review of Systems Const Reports as per [facility] Telehealth Telehealth Telehealth Platform: Telephone Location of provider rendering services: practice address Location of patient: address on file Patient Identification confirmed using: Name, : Yes Telehealth method: voice only Patient verbally consented to treatment: Yes Patient verbally consented to billing insurance company: Yes Minutes spent on Phone/Video with Pt.: 15 Assessment & Plan Assessment & Plan (1) Opioid use disorder, moderate, in sustained remission: Code(s): F11.21 - Opioid dependence, in remission Category: Medical Plan: * continue suboxone at current dose * follow up 2 months Medications: Refilled buprenorphine-naloxone 4-1 mg 1 film buccal DAILY@1400 30 ea 1RF buprenorphine-naloxone 8-2 mg (Suboxone) in addition to 4mg in afternoon total of 20mg daily 1 film buccal BID@0800,1800 60 ea 0RF
== END 2024-07-09 13:30 | disposition home or self-care (01) ==
PROVIDERS: PCP Physician Assistant Medical; Visit Provider Nurse Practitioner Psychiatric/Mental Health
DX: F11.21 Opioid dependence, in remission (principal)
CPT/HCPCS: 99213

== ENCOUNTER → 2024-07-09 13:05 | Outpatient (BNVA) | payer OTHER, MEDICAID, SELFPAY | PROVIDERS: PCP Physician Assistant Medical; Visit Provider Nurse Practitioner Psychiatric/Mental Health ==

== ENCOUNTER 2024-09-03 13:01 | Outpatient (AMB) | payer OTHER, MEDICAID, SELFPAY ==
--- NOTE | 2024-09-03 13:03 | A.OFFVISCC_ITS ---
Intake Visit Reasons: MAT tele Allergies No Known Allergies Allergy (Verified 03/19/24 12:53) Medication List - Last Reconciled 09/03/24 by Peyton Garcia CNP buprenorphine-naloxone 4-1 mg 1 film buccal DAILY@1400 buprenorphine-naloxone 8-2 mg (Suboxone) 1 film buccal BID@0800,1800 cetirizine 10 mg PO DAILY docusate sodium 100 mg PO DAILY PRN finasteride 5 mg PO DAILY furosemide 20 mg PO DAILY gabapentin 800 mg PO TID losartan 50 mg PO DAILY metoprolol succinate ER 100 mg PO DAILY omeprazole 20 mg PO DAILY warfarin mg PO HPI HPI MAT tele: Details: Patient presents for follow up via telehealth Current suboxone dose 20mg daily still tolerating dose --no discomfort spending time with his daughter fixing things at her house (go [employer]) PCP appt in October --requested he have lab results sent to [facility] med list reviewed and updated [facility] Medical History Chronic pain syndrome History of rib fracture Hip pain Knee pain Depression Back pain Heart murmur Aortic stenosis Hepatitis-C Polysubstance abuse Hyperlipidemia Hypertension Acute insomnia Ascending aortic aneurysm Duodenitis Major depressive disorder, recurrent, in partial remission Benign prostatic hyperplasia with lower urinary tract symptoms Surgical History H/O total knee replacement History of lung surgery H/O mechanical aortic valve replacement H/O aortic root repair Social History Alcohol intake: current Patient Tobacco Use Status: Never used Tobacco Substance Use Type: Heroin and Other Review of Systems Const Reports as per HPI and Reports no additional complaints Telehealth Telehealth Telehealth Platform: Telephone Location of provider rendering services: practice address Location of patient: address on file Patient Identification confirmed using: Name, : Yes Telehealth method: voice only Patient verbally consented to treatment: Yes Patient verbally consented to billing insurance company: Yes Minutes spent on Phone/Video with Pt.: 15 Assessment & Plan Assessment & Plan (1) Opioid use disorder, moderate, in sustained remission: Code(s): F11.21 - Opioid dependence, in remission Category: Medical Plan: * continue suboxone at current dose * follow up 2 months * refill to be sent next week when due
== END 2024-09-03 13:41 | disposition home or self-care (01) ==
PROVIDERS: PCP Physician Assistant Medical; Visit Provider Nurse Practitioner Psychiatric/Mental Health
DX: F11.21 Opioid dependence, in remission (principal)
CPT/HCPCS: 99213

== ENCOUNTER → 2024-09-03 13:01 | Outpatient (BNVA) | payer OTHER, MEDICAID, SELFPAY | PROVIDERS: PCP Physician Assistant Medical; Visit Provider Nurse Practitioner Psychiatric/Mental Health | DX: F11.21 Opioid dependence, in remission (principal) ==

== ENCOUNTER 2024-11-12 12:58 | Outpatient (AMB) | payer OTHER, MEDICAID, SELFPAY ==
--- NOTE | 2024-11-12 13:00 | A.OFFVISCC_ITS ---
Intake Visit Reasons: MAT tele Allergies No Known Allergies Allergy (Verified 03/19/24 12:53) [facility] MAT tele: Details: Patient presents for follow up via telehealth Currently prescribed Suboxone 20mg daily Denies any issues with medication or side effects Spent holidays with his family Review of Systems Const Reports as per [facility] Telehealth Telehealth Telehealth Platform: Telephone Location of provider rendering services: practice address Location of patient: address on file Patient Identification confirmed using: Name, : Yes Telehealth method: voice only Patient verbally consented to treatment: Yes Patient verbally consented to billing insurance company: Yes Minutes spent on Phone/Video with Pt.: 15 Assessment & Plan Assessment & Plan (1) Opioid use disorder, moderate, in sustained remission: Code(s): F11.21 - Opioid dependence, in remission Category: Medical Plan: * continue suboxone at current dose * follow up 2 months [facility] Medical History Chronic pain syndrome History of rib fracture Hip pain Knee pain Depression Back pain Heart murmur Aortic stenosis Hepatitis-C Polysubstance abuse Hyperlipidemia Hypertension Acute insomnia Ascending aortic aneurysm Duodenitis Major depressive disorder, recurrent, in partial remission Benign prostatic hyperplasia with lower urinary tract symptoms Surgical History H/O total knee replacement History of lung surgery H/O mechanical aortic valve replacement H/O aortic root repair Social History Alcohol intake: current Patient Tobacco Use Status: Never used Tobacco Substance Use Type: Heroin and Other
--- OUTSIDE RECORDS SUMMARY | 2024-11-12 13:05 | XMS_ITS | Patient Health Record ---
Author Organization [facility] Address [address] [place] [address] Care Team Providers Care Mining Machinery Assembler Name Role Phone Mitch Mary MD Primary Care Provider Unavaila ble Allergies Allergen (clinical drug ingredient) Drug/Non Drug Allergy documented on EMR Reaction Allergy Type Onset Date Status ibuprofen Ibuprofen Anaphylaxis-Neom ycin Drug Allergy Active Reason For Referral No Information Medications Medication SIG (Take, Route, Frequency, Duration) Notes Start Date End Date Status Warfarin Sodium Acti ve COVID-19 mRNA Vaccine (Connectem) Active Gabapentin 800 MG 1 tablet Orally T.I.D. Active Omeprazole 20 MG 1 capsule 30 minutes before morning meal Orally Once a day for 30 day(s) Active Metoprolol Succinate ER 100 MG 1 tablet Orally Once a day for 30 day(s) Active Losartan Potassium 50 MG 1 tablet Orally Once a day for 30 day(s) Active Finasteride 5 MG 1 tablet Orally Once a day for 30 day(s) Active DULoxetine HCl 60 MG 1 capsule Orally On ce a day for 30 day(s) Active Belbuca 900 MCG 1 film to the gum Bu luis every 12 hrs for 30 days 12/09/2021 Active cloNIDine HCl 0.1 MG 1 tablet Orally TID for 30 days Active Social History Tobacco Use: Social History Observation Description Date Details (start date - stop date) Never Smoker NA - NA Tobacco Use/Smoking Question Answer Notes Are you a nonsmoker Are you a nonsmoker Additional Findings: Tobacco Non-User Current no n-smoker Additional Findings: Tobacco Non-User Current no n-smoker Problems Problem Type SNOMED Code ICD Code Onset Dates Problem Status W/U Status Risk Notes Problem Intercostal neuropathy (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 Problem Osteoarthritis of knee (583465061) Unilateral primary osteoarthritis, left knee (M17.12) Active confirmed Problem Cervical spondylosis without myelopathy (803551402) Spondylosis without myelopathy or radiculopathy, cervical region (M47.812) Active confirmed Problem Thoracic spondylosis without myelopathy (932316649) Spondylosis without myelopathy or radiculopathy, thoracic region (M47.814) Active confirmed Problem Lumbosacral spondylosis without myelopathy (42094686) Spondylosis without myelopathy or radiculopathy, lumbar region (M47.816) Active confirmed Plan Of Treatment Pending Test Test Name Order Date [facility] 12/09/2021 Insurance Providers Payer Name Payer Address Payer Phone Subscriber Number Group Number Insured Name Patient Relationship to Insured Coverage Start Date Coverage End Date Medicare B [facility] [address] [place] [address] [phone] [id number] MYESHA BOBO Self - patient is the insured [employer] Medicaid of [place] [address] [place] [address] [id number] MYESHA BOBO Self - patient is the insured Medical (General) History Medical History History ICD Code Morbid obesity due to excess calories Thoracic aortic aneurysm without rupture Insomnia Hypertension Hyperlipidemia psychoactive substance abuse, uncomplica willy Presence of prosthetic heart valve Nonheumatic aortic valve stenosis Viral hepatitis C without hepatic coma Cardiac murmur unspecified Dorsalgia Major depressive disorder, single episod e Pain in unspecified knee Stomach ulcer Patient is on Warfarin NSaids effect his PT INR Results Surgical History Surgery Date(Month/Year) Artifical Heart Valve Replacement due to an Aortic Aneursymn left knee sx lung operation due to pneumothrorax Hx of [place] ribs he has artifical ribs ( steel ) Mandible jaw ( steel) left Hand sx Right leg femur and tibia have steel garry s skin grafts left knee sx Hospitalization History Reason Date(Month/Year) ER - stitches left eyebrow 03/04/2020 er visit: pt passed out in grocery store parking lot 04/10/2021
== END 2024-11-12 13:15 | disposition home or self-care (01) ==
PROVIDERS: PCP Physician Assistant Medical; Visit Provider Nurse Practitioner Psychiatric/Mental Health
DX: F11.21 Opioid dependence, in remission (principal)
CPT/HCPCS: 99213

== ENCOUNTER → 2024-11-12 12:58 | Outpatient (BNVA) | payer OTHER, MEDICAID, SELFPAY | PROVIDERS: PCP Physician Assistant Medical; Visit Provider Nurse Practitioner Psychiatric/Mental Health | DX: F11.21 Opioid dependence, in remission (principal) ==

== ENCOUNTER 2025-01-23 13:05 | Outpatient (AMB) | payer MEDICARE, MEDICAID, SELFPAY ==
--- NOTE | 2025-01-23 13:08 | A.OFFVISCC_ITS ---
Intake Visit Reasons: MAT tele Allergies No Known Allergies Allergy (Verified 03/19/24 12:53) HPI HPI MAT tele: Details: Patient presents for follow up via telehealth Currently prescribed Suboxone 20mg daily Tolerating current dose Saw PCP last month--no issues to report Review of Systems Const Reports as per HPI and Reports no additional complaints Telehealth Telehealth Telehealth Platform: Telephone Location of provider rendering services: practice address Location of patient: address on file Patient Identification confirmed using: Name, : Yes Telehealth method: voice only Patient verbally consented to treatment: Yes Patient verbally consented to billing insurance company: Yes Minutes spent on Phone/Video with Pt.: 15 PFSH Medical History Chronic pain syndrome History of rib fracture Hip pain Knee pain Depression Back pain Heart murmur Aortic stenosis Hepatitis-C Polysubstance abuse Hyperlipidemia Hypertension Acute insomnia Ascending aortic aneurysm Duodenitis Major depressive disorder, recurrent, in partial remission Benign prostatic hyperplasia with lower urinary tract symptoms Surgical History H/O total knee replacement History of lung surgery H/O mechanical aortic valve replacement H/O aortic root repair Social History Alcohol intake: current Patient Tobacco Use Status: Never used Tobacco Substance Use Type: Heroin and Other Assessment & Plan Assessment & Plan (1) Opioid use disorder, moderate, in sustained remission: Code(s): F11.21 - Opioid dependence, in remission Category: Medical Plan: * continue suboxone at current dose * follow up 3 months
--- OUTSIDE RECORDS SUMMARY | 2025-01-23 15:19 | XMS_ITS | Clinical Summary ---
Author Organization [facility] Address [address] [place] [address] [address] [place] [address] Care Team Providers Care Spa Therapist Name Role Phone Unavailable Primary Care Provider Unavailabl e Medications amoxicillin (Amoxil) 500 MG capsule Take four tablets one hour before dental treatment 20 capsule 4 3 Active Social History Tobacco Use Types Packs/Day Years Used Date Smoking Tobacco: Never Assessed Sex and Gender Information Value Date Recorded Sex Assigned at Male 01/12/2023 2:43 PM EST Legal Sex Male 5:35 PM EDT Gender Identity Male 01/12/2023 2:43 PM EST Sexual Orientation Choose not to disclose 2022 2:43 PM EST Plan of Treatment Health Maintenance Due Date Last Done Comments CT Colonography 1955 Colonoscopy 1955 Colorectal Cancer Screening 1955 Depression Screening 1955 FIT DNA/Cologuard 1955 FIT 1955 FOBT 1955 Lipid Panel 1955 SDOH Screening 1955 Sigmoidoscopy 1955 Alcohol/Substance Use Screening 1967 Tobacco Screening 1967 Hepatitis A Vaccines (1 of 2 - Risk 2-dose series) 1974 Hepatitis B Vaccines (1 of 3 - Risk 3-dose series) 2015 RSV Patients and Patients Aged 60 years or older (1 - Risk 60-74 years 1-dose series) 2015 Dental X-Ray: Full Mouth 11/24/2019 11/23/2016 DTaP/Tdap/Td Vaccines (2 - Td or Tdap) 09/17/2023 09/17/2013 Dental Oral Exam 12/29/2023 06/27/2023, , 12/18/2020, Additional history exists Dental Prophylaxis 12/29/2023 06/27/2023, 0 11/27/2021, 12/18/2020, Additional history exists Dental X-Ray: Bitewings 06/28/2024 06/27/20 23, 12/21/2019, 01/30/2018, Additional history exists COVID-19 Vaccine ( season) 2024 10/24/2021, 01/21/2021, 12/30/2020 Influenza Vaccine (#1) 2024 , 09/14/2020, 09/08/2020, Additional history exists Pneumococcal Vaccine: 50+ Years Completed 09/14/2020, 09/08/2020 Zoster Vaccines Completed 07/21/2023, 02/12, 09/02/2021, Additional history exists HIB Vaccines Aged Out No longer eligi ble based on patient's age to complete this topic HPV Vaccines Aged Out No longer eligi ble based on patient's age to complete this topic IPV Vaccines Aged Out No longer eligi ble based on patient's age to complete this topic Meningococcal Vaccine Aged Out No sheryl waldemar eligible based on patient's age to complete this topic RSV under 20 months Aged Out No longe r eligible based on patient's age to complete this topic Rotavirus Vaccines Aged Out No longer eligible based on patient's age to complete this topic Procedures Procedure Name Priority Date/Time Associated Diagnosis Comments Full PROPHYLAXIS - ADULT Routine 023 2:30 PM EDT BITEWINGS - 2 RADIOGRAPHIC IMAGES Routine 06/27/2023 2:30 PM EDT PERIODIC ORAL EVALUATION - ESTABLISHED PATIENT Routine 06/27/2023 2:30 PM EDT PANORAMIC RADIOGRAPHIC IMAGE Routine 11/23/2016 12:00 AM EST from Last 3 Months or Most Recently Relevant to Health Maintenance Insurance [facility] MEDICAID STAND ADULT
--- OUTSIDE RECORDS SUMMARY | 2025-01-23 15:19 | XMS_ITS | Encounter Summary ---
Author Organization [facility] Address [address] [place] [address] Care Team Providers Care Data Keyer Name Role Phone Zeke Navarro Primary Care Provider [phone] Encounter Details Date Type Department Care Team (Latest Contact Info) Description 12/26/2024 2:00 PM EST Anticoagulation - Warfarin [facility] [address] [place] [address] H/O mechanical aortic valve replacement (Primary Dx) Social History Tobacco Use Types Packs/Day Years Used Date Smoking Tobacco: Never Smokeless Tobacco: Never Alcohol Use Standard Drinks/Week Comments Yes 0 (1 standard drink = 0.6 oz pur e alcohol) Sex and Gender Information Value Date Recorded Sex Assigned at Not on file Legal Sex Male 12:23 PM EST Gender Identity Not on file Sexual Orientation Not on file documented as of this encounter Plan of Treatment Upcoming Encounters Date Type Department Care Team (Late st Contact Info) Description 01/29/2025 10:00 AM EDT Ancillary Procedure [facility] [address] [facility] [address] [place] [address] 02/20/2025 2:00 PM EDT Anticoagulation - Warfarin Visit [facility] [address] [place] [address] 04/16/2025 10:40 AM EDT Office Visit [facility] [place] [address] [place] [phone] Brittany Fleming, ALTAF [address] [place] [address] [place] [address] 05/20/2025 12:45 PM EDT Office Visit Adult Medicine [facility] [address] [place] [address] Zeke Navarro PA [address] [place] [address] documented as of this encounter Procedures Procedure Name Priority Date/Time Associated Diagnosis Comments POC PROTIME INR BLOOD Routine 12/26/2024 2:00 PM EST H/O mechanical aortic valve replacement documented in this encounter Results * POC Protime INR Blood (12/26/2024 2:00 PM EST) Lot Number INR POC 2.7 Prothrombin Time POC Exp Date Blood 12/26/2024 2:00 PM EST Abdiel Manning MD POINT OF CARE TEST ENTER/ EDIT ORDERABLES Final Result documented in this encounter Visit Diagnoses Diagnosis H/O mechanical aortic valve replacement- Primary documented in this encounter Care Teams Data Keyer Relationship Specialty Start Date End Date Zeke Navarro PA [address] [place] [phone] PCP - General Internal Medicine 10/01/20 documented as of this encounter
--- OUTSIDE RECORDS SUMMARY | 2025-01-23 15:19 | XMS_ITS | Encounter Summary ---
Author Organization [employer] Address [address] [facility] [address] [place] [address] Care Team Providers Care Counter Supply Worker Name Role Phone Unavailable Primary Care Provider Unavailabl e Encounter Details Date Type Department Care Team (Latest Contact Info) Description 12/18/2020 Abstract [facility] Dental, Provider, DDS Social History Tobacco Use Types Packs/Day Years Used Date Smoking Tobacco: Never Assessed Sex and Gender Information Value Date Recorded Sex Assigned at Male 01/12/2023 2:43 PM EST Legal Sex Male 5:35 PM EDT Gender Identity Male 01/12/2023 2:43 PM EST Sexual Orientation Choose not to disclose 2022 2:43 PM EST documented as of this encounter Plan of Treatment Not on file documented as of this encounter Visit Diagnoses Not on filedocumented in this encounter
--- OUTSIDE RECORDS SUMMARY | 2025-01-23 15:19 | XMS_ITS | Encounter Summary ---
Author Organization [facility] Address [address] [place] [address] Care Team Providers Care Lens Mounter Name Role Phone Zeke Navarro Primary Care Provider [phone] [phone] Encounter Details Date Type Department Care Team (Latest Contact Info) Description 01/23/2025 2:00 PM EDT Anticoagulation - [facility]in [facility] [address] [place] [address] H/O mechanical aortic valve replacement (Primary Dx) [...] Description 01/29/2025 10:00 AM EDT Ancillary Procedure [facility] [address] [facility] [address] [place] [address] 02/20/2025 2:00 PM EDT Anticoagulation - Warfarin Visit [facility] [address] [place] [address] 04/16/2025 10:40 AM EDT Office Visit [facility] [address] [place] [address] Brittany Fleming NP [address] [place] [address] Dr [address] [place] [address] 05/20/2025 12:45 PM EDT Office Visit Adult Medicine [facility] [address] [place] [address] Zeke Navarro PA [address] [place] [address] documented as of this encounter Procedures Procedure Name Priority Date/Time Associated Diagnosis Comments POC PROTIME INR BLOOD Routine 01/23/2025 11:55 AM EDT H/O mechanical aortic valve replacement documented in this encounter Results * POC Protime INR Blood (01/23/2025 11:55 AM EDT) Lot Number INR POC 2.9 Prothrombin Time POC Exp Date Blood 01/23/2025 11:5 5 AM EDT Yves Avila MD POINT OF CARE TEST ENTER/EDIT ORDERABLES Final Result documented in this encounter Visit Diagnoses Diagnosis H/O mechanical aortic valve replacement- Primary documented in this encounter Care Teams Lens Mounter Relationship Specialty Start Date End Date Zeke Navarro PA [address] [place] [address] PCP - General Internal Medicine 10/01/20 documented as of this encounter
--- OUTSIDE RECORDS SUMMARY | 2025-01-23 15:19 | XMS_ITS | Encounter Summary ---
Author Organization [facility] Address [address] [facility] 7 [place] [address] Care Team Providers Care Wharf Operator Name Role Phone Unavailable Primary Care Provider Unavailabl e Encounter Details Date Type Department Care Team (Latest Contact Info) Description 11/27/2021 Abstract [facility] Dental, Provider, DDS Social [...]
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
--- OUTSIDE RECORDS SUMMARY | 2025-01-23 15:19 | XMS_ITS | Encounter Summary ---
Author Organization [facility] Address [address] [place] [address] Care Team Providers Care Senior Net Software Engineer Name Role Phone Zeke Navarro Primary Care Provider [phone] Reason for Visit * Reason Onset Date Comments Med Refill 01/10/2025 Encounter Details Date Type Department Care Team (Late st Contact Info) Description 01/10/2025 Telephone [facility] Cardiology [address] [place] [id number] Jarrell Suarez MD [address] [place] [address] [address] [place] [address] Med Refill Social History Tobacco Use Types Packs/Day Years [...] on file documented as of this encounter Ordered Prescriptions Prescription Sig Dispense Quantity Refills Last Filled Start Date End Date furosemide (LASIX) 20 mg tablet Take 1 tablet (20 mg total) by mouth 1 (one) time each day. 90 tablet 1 01/11/2025 documented in this encounter Progress Notes * Linnette Mcneal MA - 01/11/2025 7:57 AM EST I spoke to the pt this am and the correct medication if furosemide --I have taken care of this request * Anderson Quinteros - 01/10/2025 4:41 PM EST NAME: Torsemide M TAKEN HOW OFTEN: once a day FILL FOR:90 days PHARMACY:[facility] [place] documented in this encounter Plan of Treatment Upcoming Encounters Date Type Department Care Team (Late st Contact Info) Description 01/29/2025 10:00 AM EDT Ancillary Procedure [facility] Cardiology [facility] [address] [place] [address] 02/20/2025 2:00 PM EDT Anticoagulation - Warfarin Visit [facility] [place] [address] [place] [address] 04/16/2025 10:40 AM EDT Office Visit [facility] Cardiology [facility] [address] [place] [address] Brittany Fleming NP [address] [place] [address] [address] [place] [address] 05/20/2025 12:45 PM EDT Office Visit Adult Medicine [address] [phone] Zeke Navarro PA [address] [place] [id number] documented as of this encounter Visit Diagnoses Not on filedocumented in this encounter Discontinued Medications Medication Sig Discontinue Reason Start Date End Da te furosemide (LASIX) 20 mg tablet Take 1 tablet (20 mg total) by mouth 1 (one) time each day. Reorder 10/31/2024 01/11/2025 documented as of this encounter Care Teams Senior Net Software Engineer Relationship Specialty Start Date End Date Zeke Navarro PA [address] [place] [id number] PCP - General Internal Medicine 10/01/20 documented as of this encounter
--- OUTSIDE RECORDS SUMMARY | 2025-01-23 15:19 | XMS_ITS | Encounter Summary ---
Author Organization [facility] Address [address] [facility] 7 [place] [address] Care Team Providers Care Project Development Director Name Role Phone Unavailable Primary Care Provider Unavailabl e Encounter Details Date Type Department Care Team (Latest Contact Info) Description 12/21/2019 Abstract [facility] CONVERSIONS Dental, Provider, DDS Social [...]
== END 2025-01-23 13:20 | disposition home or self-care (01) ==
LOC: HO.HCC 13:05
PROVIDERS: PCP Physician Assistant Medical; Visit Provider Nurse Practitioner Psychiatric/Mental Health
DX: F11.21 Opioid dependence, in remission (principal)
CPT/HCPCS: 99213

== ENCOUNTER 2025-04-26 10:58 | Outpatient (AMB) | payer OTHER, SELFPAY ==
[2025-04-26 10:58] VITALS: PULSE 73; O2SAT 97
--- NOTE | 2025-04-26 10:58 | MHC.OFFVIS ---
Vital Signs 04/26/25 10:58 Pulse 73 Pulse Source Pulse Oximeter Pulse Oximetry (%) 97 Intake Visit Reasons: MAT Allergies No Known Allergies Allergy (Verified 04/26/25 11:08) HPI HPI MAT: Details: He has been doing well. He is not drinking he says [facility] Medical History Chronic pain syndrome History of rib fracture Hip pain Knee pain Depression Back pain Heart murmur Aortic stenosis Hepatitis-C Polysubstance abuse Hyperlipidemia Hypertension Acute insomnia Ascending aortic aneurysm Duodenitis Major depressive disorder, recurrent, in partial remission Benign prostatic hyperplasia with lower urinary tract symptoms Surgical History H/O total knee replacement History of lung surgery H/O mechanical aortic valve replacement H/O aortic root repair Social History Alcohol intake: current Patient Tobacco Use Status: Never used Tobacco Substance Use Type: Heroin and Other Review of Systems Const All systems reviewed & are unremarkable except as noted in HPI and below Physical Exam Vital Signs: Last Vital Signs Pulse 73 04/26/25 10:58 Pulse Ox 97 04/26/25 10:58 Const General: cooperative Assessment & Plan Assessment & Plan (1) Opioid use disorder, moderate, in sustained remission: Code(s): F11.21 - Opioid dependence, in remission Category: Medical Plan: Continue Suboxone ,one month and two refills. See then. Medications: New buprenorphine-naloxone 8-2 mg (Suboxone) 1 film sublingual TID 90 ea 2RF 30 days Coding Level of Care Code Est Pt Level 3 (49705) Diagnoses Opioid use disorder, moderate, in sustained remission F11.21
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
== END 2025-04-26 11:27 | disposition home or self-care (01) ==
LOC: HO.HCC 10:58
PROVIDERS: PCP Physician Assistant Medical; Visit Provider Internal Medicine
DX: F11.21 Opioid dependence, in remission (principal)
CPT/HCPCS: 99213

== ENCOUNTER → 2025-04-26 10:58 | Outpatient (BNVA) | payer OTHER, SELFPAY | PROVIDERS: PCP Physician Assistant Medical; Visit Provider Internal Medicine | DX: F11.21 Opioid dependence, in remission (principal) | CPT/HCPCS: 99212 ==

== ENCOUNTER 2025-07-26 10:51 | Outpatient (AMB) | payer OTHER, SELFPAY ==
[2025-07-26 11:06] VITALS: PULSE 89; O2SAT 100; BMI 31.1
--- NOTE | 2025-07-26 11:06 | A.OFFVIS_ITS ---
Vital Signs 07/26/25 11:06 Height 5 ft 11 in Weight 223 lb BMI 31.1 Pulse 89 Pulse Source Pulse Oximeter Pulse Oximetry (%) 100 Oxygen Delivery Method Room Air Intake Visit Reasons: MAT Allergies No Known Allergies Allergy (Verified 07/26/25 11:07) HPI Comments Details: History of Present Illness The patient is a 70-year-old male presenting for a follow-up evaluation concerning his opioid use disorder. He is currently on a regimen of Suboxone 8/2 mg three times daily, which he tolerates well without any reported complications or side effects. His prescription compliance over the last three months has been consistent. Additionally, the patient has a prior history of chronic depression, which is presently inactive. Although he engaged in counseling approximately a decade ago, he does not currently experience symptoms warranting further mental health interventions. An incidental social history detail includes a previous request for renal donation, which is now irrelevant. Review of Systems - Musculoskeletal: Reports slight stiffness related to colder weather. - Psychiatric: Denies current depression or need for counseling services. - Gastrointestinal: Denies constipation. Physical Exam - Vitals- Stable and unremarkable. Results Plan Patient was informed and verbally consented to the use of an ambient scribe for clinic note documentation during this visit. 1. Opioid use, unspecified, uncomplicated F11.90 The patient is adhering to his prescription Suboxone regimen, showing stability in his condition. I have provided a prescription to last until the next appoint ment with additional refills. Liver function monitoring will be maintained periodically. Follow-up is set in three months with continued abstinence from alcohol emphasized. 2. Depression, unspecified F32.A Currently inactive, requiring no immediate intervention. I acknowledged the patient's autonomy in deciding against further counseling. Monitoring will continue for any depressive symptoms, with potential interventions if needed. Discussion Notes I discussed the patient's ongoing management of opioid use disorder, confirming the current Suboxone regimen is effective and well-tolerated. We addressed potential risks of liver dysfunction; thus, regular liver function tests will be ongoing. Emphasis was placed on maintaining alcohol abstinence. Regarding depression, I acknowledged its current inactive state and confirmed no necessity for further counseling. Follow-up plans in three months were agreed upon for ongoing evaluation and support. Medical Decision Making The patient remains stable on Suboxone for opioid use disorder, requiring no modifications to therapy presently. His compliance and lack of issues with the medication affirm the current management approach. I will persist with regular monitoring of hepatic function due to the medication's metabolic profile. With depression currently inactive, no interventions are warranted unless future symptoms arise. The goal is sustained abstinence from opioids, ensuring psychological stability with regular assessments in three months to reassess the therapeutic efficacy and any emerging needs. Patient Instructions - Continue taking Suboxone 8/2 mg three times a day as prescribed. - Abstain from alcohol. - Report any new or worsening symptoms to the clinic. - Keep up with liver function monitoring as advised. - Return for a follow-up in three months or sooner if needed. [facility] Medical History Chronic pain syndrome History of rib fracture Hip pain Knee pain Depression Back pain Heart murmur Aortic stenosis Hepatitis-C Polysubstance abuse Hyperlipidemia Hypertension Acute insomnia Ascending aortic aneurysm Duodenitis Major depressive disorder, recurrent, in partial remission Benign prostatic hyperplasia with lower urinary tract symptoms Surgical History H/O total knee replacement History of lung surgery H/O mechanical aortic valve replacement H/O aortic root repair Social History Alcohol intake: current Patient Tobacco Use Status: Never used Tobacco Substance Use Type: Heroin and Other Physical Exam Vital Signs: Last Vital Signs Pulse 89 07/26/25 11:06 Pulse Ox 100 07/26/25 11:06 Oxygen Delivery Method Room Air 07/26/25 11:06 BMI result Body Mass Index 31.1 Assessment & Plan Assessment & Plan (1) Opioid use disorder, moderate, in sustained remission: Code(s): F11.21 - Opioid dependence, in remission Category: Medical Plan n/a Medications: New buprenorphine-naloxone 8-2 mg (Suboxone) 1 film sublingual TID 90 ea 2RF 30 days Coding Level of Care Code Est Pt Level 3 (23094) Diagnoses Opioid use disorder, moderate, in sustained remission F11.21
== END 2025-07-26 11:30 | disposition home or self-care (01) ==
LOC: HO.HCC 10:51
PROVIDERS: PCP Physician Assistant Medical; Visit Provider Internal Medicine
DX: F11.21 Opioid dependence, in remission (principal)
CPT/HCPCS: 99213

== ENCOUNTER → 2025-07-26 10:51 | Outpatient (BNVA) | payer OTHER, SELFPAY | PROVIDERS: PCP Physician Assistant Medical; Visit Provider Internal Medicine | DX: F11.21 Opioid dependence, in remission (principal) | CPT/HCPCS: 99212 ==

== ENCOUNTER 2025-10-23 13:34 | Outpatient (AMB) | payer OTHER, SELFPAY ==
--- NOTE | 2025-10-23 13:41 | MHC.AM.SUB ---
Vital Signs 10/23/25 13:47 Height 5 ft 11 in Weight 229 lb BMI 31.9 Pulse 62 Pulse Source Pulse Oximeter Pulse Oximetry (%) 99 Oxygen Delivery Method Room Air Intake Visit Reasons: MAT Allergies No Known Allergies Allergy (Verified 10/23/25 13:48) HPI HPI MAT: Details: He is doing well. He is still taking three times a day and finds it helpful Review of Systems Const All systems reviewed & are unremarkable except as noted in HPI and below Physical Exam Vital Signs: Last Vital Signs Pulse 62 10/23/25 13:47 Pulse Ox 99 10/23/25 13:47 Oxygen Delivery Method Room Air 10/23/25 13:47 BMI result Body Mass Index 31.9 [facility] Medical History Chronic pain syndrome History of rib fracture Hip pain Knee pain Depression Back pain Heart murmur Aortic stenosis Hepatitis-C Polysubstance abuse Hyperlipidemia Hypertension Acute insomnia Ascending aortic aneurysm Duodenitis Major depressive disorder, recurrent, in partial remission Benign prostatic hyperplasia with lower urinary tract symptoms Surgical History H/O total knee replacement History of lung surgery H/O mechanical aortic valve replacement H/O aortic root repair Social History Alcohol intake: current Patient Tobacco Use Status: Never used Tobacco Substance Use Type: Heroin and Other Assessment & Plan Assessment & Plan (1) Opioid use disorder, moderate, in sustained remission: Comment: He is doing well Code(s): F11.21 - Opioid dependence, in remission Category: Medical Plan: Continue Suboxone three times a day and two refills Plan See in three months
[2025-10-23 13:47] VITALS: PULSE 62; O2SAT 99; BMI 31.9
--- OUTSIDE RECORDS SUMMARY | 2025-10-23 20:56 | XMS_ITS | Encounter Summary ---
Author Organization [employer] Address [address] [place] [address] Care Team Providers Care Management Analyst Name Role Phone Unavailable Primary Care Provider [...]
--- OUTSIDE RECORDS SUMMARY | 2025-10-23 20:56 | XMS_ITS | Encounter Summary ---
Author Organization [employer] Address [address] [place] [address] Care Team Providers Care Area Relief Pilot Name Role Phone Unavailable Primary Care Provider [...]
--- OUTSIDE RECORDS SUMMARY | 2025-10-23 20:56 | XMS_ITS ---
Author Name [facility] Organization Unknown Care Team Organization Name Specialty Phone Email Start Date End Da te [facility] Manuel Grady Primary Care 01/19/2023 07/02/2024 [facility] Zeke Navarro Primary Care 09/21/2022
--- OUTSIDE RECORDS SUMMARY | 2025-10-23 20:57 | XMS_ITS | Clinical Summary ---
Author Organization [employer] Address [address] [facility] [address] [place] [address] Care Team Providers Care Multigrapher Name Role Phone Unavailable Primary Care Provider [...] of 2 - Risk 2-dose series) 1974 RSV Patients and Patients Aged 60 years or older (1 - Risk 50-74 years 1-dose series) 2005 Hepatitis B Vaccines (1 of 3 - Risk 3-dose series) 2015 Dental X-Ray: Full Mouth 11/24/2019 11/23/2016 DTaP/Tdap/Td Vaccines (2 - Td or Tdap) 09/17/2023 09/17/2013 Dental Oral Exam 12/29/2023 06/27/2023, , 12/18/2020, Additional history exists Dental Prophylaxis 12/29/2023 06/27/2023, 0 11/27/2021, 12/18/2020, Additional history exists Dental X-Ray: Bitewings 06/28/2024 06/27/20 23, 12/21/2019, 01/30/2018, Additional history exists COVID-19 Vaccine ( season) 2025 10/24/2021, 01/21/2021, 12/30/2020 Influenza Vaccine (#1) 2025 , 09/14/2020, 09/08/2020, Additional history exists Pneumococcal [...] Most Recently Relevant to Health Maintenance Insurance [facility] [place] [id number] * Guarantor: Zackery Burgess Account Type Relation to Patient Date of Phone Billing Address Personal/Family Self [address] [place]
--- OUTSIDE RECORDS SUMMARY | 2025-10-23 20:57 | XMS_ITS | Encounter Summary ---
Author Organization [employer] Address [address] [place] [address] Care Team Providers Care Senior Contract Specialist Name Role Phone Unavailable Primary Care Provider [...]
== END 2025-10-23 14:29 | disposition home or self-care (01) ==
LOC: HO.HCC 13:34
PROVIDERS: PCP Physician Assistant Medical; Visit Provider Internal Medicine
DX: F11.21 Opioid dependence, in remission (principal)
CPT/HCPCS: 99213

== ENCOUNTER → 2025-10-23 13:34 | Outpatient (BNVA) | payer OTHER, SELFPAY | PROVIDERS: PCP Physician Assistant Medical; Visit Provider Internal Medicine | DX: F11.21 Opioid dependence, in remission (principal); Z79.899 Other long term (current) drug therapy | CPT/HCPCS: 99212 ==